=== PATIENT | male | born 2000 ===

== ENCOUNTER 2023-02-12 21:04 | Emergency (ER) | payer SELFPAY ==
--- NOTE | 2023-02-12 23:18 | EDPHYS ---
Physician Documentation [facility] Name: Berny Hogan Age: 22 yrs Sex: Male : 2000 Arrival Date: 02/12/2023 Time: 21:04 Bed DIS3 Private MD: ED Physician Blaze Castellano HPI: 02/13 02:49 This 22 yrs old Male presents to ER via Ambulatory with complaints of Toothache. sb4 02:49 The patient presents with pain. The problem is located in the lower left third molar. sb4 Onset: The symptoms/episode began/occurred gradually. Duration: The symptoms are intermittent. Modifying factors: The symptoms are alleviated by nothing, the symptoms are aggravated by nothing. Associated signs and symptoms: The patient has no apparent associated signs or symptoms. The patient has not experienced similar symptoms in the past. The patient has not recently seen a physician. Historical: - Allergies: 02/12 22:16 No Known Allergies; lg3 - Home Meds: 22:16 None [Active]; lg3 - PMHx: 22:16 None; lg3 - PSHx: 22:16 None; lg3 - Immunization history:: Adult Immunizations up to date, Client reports having NOT received the Covid vaccine. - Social history:: Smoking status: Patient reports the use of cigarette tobacco products, denies chronic smoking, but will smoke occasionally, Patient/guardian denies using alcohol, street drugs. ROS: 02/13 02:49 Constitutional: Negative for fever, chills, and weight loss. sb4 ENT: Positive for Teeth pain Negative for Gum pain sore throat, difficulty swallowing, difficulty handling secretions. All other systems are negative. Exam: 02:49 Constitutional: This is a well developed, well nourished patient who is awake, alert, sb4 and in no acute distress. Head/Face: Normocephalic, atraumatic. Skin: Warm, dry with normal turgor. Normal color with no rashes, no lesions, and no evidence of cellulitis. 02:49 ENT: Exam is negative for earache, ear discharge, ear swelling, nasal discharge, obvious nasal foreign body, sinus tenderness, enlarged tonsils, peritonsillar abscess dysphagia, Dental exam: dental caries, specifically in the lower left third molar (#17), pain. Vital Signs: 02/12 22:14 BP 130 / 96; Pulse 82; Resp 17 S; Temp 98.1(O); Pulse Ox 99% on R/A; Weight 65.77 kg lg3 (R); Height 5 ft. 6 in. (R); 22:14 Body Mass Index 23.40 (65.77 kg, 167.64 cm) lg3 MDM: 21:37 Patient medically screened. sb4 02/13 02:49 Differential diagnosis: dental caries, gingivitis, dental abscess, pericoronitis. Data sb4 reviewed: vital signs, nurses notes, and as a result, I will discharge patient. Counseling: I had a detailed discussion with the patient and/or guardian regarding: the historical points, exam findings, and any diagnostic results supporting the discharge/admit diagnosis, the need for outpatient follow up, a dentist. Administered Medications: 02/12 23:33 Drug: Acetaminophen PO 1000 mg Route: PO; Disposition: 02/13 03:18 Co-signature as Attending Physician, Blaze Castellano MD I reviewed the patient's care rn provided by the Advanced Practice Provider and agree with the diagnosis and treatment plan. Disposition Summary: 02/12/23 23:17 Discharge Ordered Location: Home sb4 Problem: an ongoing problem sb4 Symptoms: are unchanged sb4 Condition: Stable sb4 Diagnosis - Dental caries, unspecified sb4 Followup: sb4 - With: Chace Akhtar DDS - When: 2 - 3 days - Reason: Recheck today's complaints, Continuance of care, Re-evaluation by your physician Discharge Instructions: - Discharge Summary Sheet sb4 - Dental Caries, Adult sb4 - Dental Pain, [id number] sb4 Forms: - Medication Reconciliation Form sb4 - Thank You Letter sb4 - Antibiotic Education sb4 - Prescription Opioid Use sb4 - Patient Portal Instructions sb4 Prescriptions: - Amoxicillin 875 mg Oral Tablet - take 1 tablet by ORAL route every 12 hours for 10 days; 20 tablet; Refills: 0, sb4 Product Selection Permitted - Medrol (Lionel) 4 mg Oral Tablets, Dose Pack - take 1 tablet by ORAL route as directed - follow package instructions; 1 sb4 packet; Refills: 0, Product Selection Permitted Signatures: Bety Gustafson RN RN Blaze Castellano MD MD rn Gibson, Lacie, RN RN lg3 Brown, Patti, PA-C PA-C sb4
--- NOTE | 2023-02-12 23:18 | ER ---
Nurse's Notes [facility] Name: Berny Hogan Age: 22 yrs Sex: Male : 2000 Arrival Date: 02/12/2023 Time: 21:04 Bed DIS3 Private MD: Diagnosis: Dental caries, unspecified Presentation: 02/12 22:14 Chief complaint: Patient states: lower left sided tooth pain X2 days. Coronavirus lg3 screen: Client denies travel out of the [place] in the last 14 days. At this time, the client does not indicate any symptoms associated with coronavirus-19. Ebola Screen: No symptoms or risks identified at this time. Initial Sepsis Screen: Does the patient meet any 2 criteria? No. Patient's initial sepsis screen is negative. Does the patient have a suspected source of infection? No. Patient's initial sepsis screen is negative. Risk Assessment: Do you want to hurt yourself or someone else? Patient reports no desire to harm self or others. Onset of symptoms was February 10, 2023. 22:14 Method Of Arrival: Ambulatory lg3 22:14 Acuity: JESSICA 4 lg3 Triage Assessment: 22:16 General: Appears in no apparent distress. comfortable, Behavior is calm, cooperative. lg3 Pain: Complains of pain in mouth. EENT: Reports pain in left jaw. Neuro: No deficits noted. Hanson Agitation-Sedation Scale (RASS): 0 - Alert and Calm Level of Consciousness is awake, alert, obeys commands, Oriented to person, place, time, situation. Cardiovascular: No deficits noted. Respiratory: No deficits noted. Airway is patent Trachea midline Respiratory effort is even, unlabored, Respiratory pattern is regular, symmetrical. GI: No deficits noted. No signs and/or symptoms were reported involving the gastrointestinal system. : No deficits noted. No signs and/or symptoms were reported regarding the genitourinary system. Derm: No deficits noted. No signs and/or symptoms reported regarding the dermatologic system. Musculoskeletal: No deficits noted. No signs and/or symptoms reported regarding the musculoskeletal system. Circulation, motion, and sensation intact. Range of motion: intact in all extremities. Historical: - Allergies: 22:16 No Known Allergies; lg3 - Home Meds: 22:16 None [Active]; lg3 - PMHx: 22:16 None; lg3 - PSHx: 22:16 None; lg3 - Immunization history:: Adult Immunizations up to date, Client reports having NOT received the Covid vaccine. - Social history:: Smoking status: Patient reports the use of cigarette tobacco products, denies chronic smoking, but will smoke occasionally, Patient/guardian denies using alcohol, street drugs. Vital Signs: 22:14 BP 130 / 96; Pulse 82; Resp 17 S; Temp 98.1(O); Pulse Ox 99% on R/A; Weight 65.77 kg lg3 (R); Height 5 ft. 6 in. (R); 22:14 Body Mass Index 23.40 (65.77 kg, 167.64 cm) lg3 ED Course: 21:10 Patient arrived in ED. ag3 21:27 [facility]err[facility] sb4 21:27 Blaze Castellano MD is Attending Physician. sb4 22:16 Triage completed. lg3 22:16 Arm band placed on right wrist. lg3 23:17 Chace Akhtar DDS is Referral Physician. sb4 Administered Medications: 23:33 Drug: Acetaminophen PO 1000 mg Route: PO; Outcome: 23:17 Discharge ordered by . sb4 23:33 Patient left the ED. Signatures: Bety Gustafson RN RN Dora Collins [facility] Rowena Mendosa, RN RN [facility] Patti Serrano PA-C PA-C sb4
[2023-02-12] MEDS ORDERED: ACETAMINOPHEN 500 MG TAB ONE (23:40)
[2023-02-13 03:21] VITALS: BP 130/96; TEMP 98.1; O2SAT 99
== END 2023-02-12 23:33 | disposition home or self-care (01) ==
LOC: ER 21:04
DX: K02.9 Dental caries, unspecified (principal)
CPT/HCPCS: 99282